=== PATIENT | male | born 1965 | race Caucasian/White ===

== ENCOUNTER 2019-07-29 19:21 | Emergency (ER) | payer BC ==
[~2019-07-29] VITALS: Ht 182.9 cm; Wt 118.0 kg
[2019-07-29] MEDS ORDERED: ALBU8.5H8 IH (19:40)
[2019-07-29] MEDS ORDERED: BENZ-16 PO (19:40)
[2019-07-29] MEDS ORDERED: PRED20TA PO (19:40)
[2019-07-29 19:51] VITALS: BP 177/84
== END 2019-07-29 19:53 | disposition home or self-care (01) ==
LOC: ER 19:22
DX: B34.9 Viral infection, unspecified (principal); R09.89 Other specified symptoms and signs involving the circulatory and respiratory systems; J02.9 Acute pharyngitis, unspecified; R52 Pain, unspecified; Z72.89 Other problems related to lifestyle; Z79.52 Long term (current) use of systemic steroids; Z79.899 Other long term (current) drug therapy
CPT/HCPCS: 99283